=== PATIENT | female | born 1995 | race Hispanic/Latino ===

== ENCOUNTER 2018-07-27 04:41 | Emergency (ER) | payer OTHER ==
[2018-07-27 05:03] VITALS: RESP 18; O2SAT 100
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
[2018-07-27 06:41] VITALS: BP 115/71; PULSE 61; TEMP 98.2
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
== END 2018-07-27 06:54 | disposition home or self-care (01) ==
LOC: C.ER 04:41
DX: S09.90XA Unspecified injury of head, initial encounter (principal); S13.4XXA Sprain of ligaments of cervical spine, initial encounter; S60.221A Contusion of right hand, initial encounter; V49.49XA Driver injured in collision with other motor vehicles in traffic accident, initial encounter; W22.11XA Striking against or struck by driver side automobile airbag, initial encounter; Y92.410 Unspecified street and highway as the place of occurrence of the external cause

== ENCOUNTER 2018-07-27 15:50 | Emergency (ER) | payer OTHER ==
[2018-07-27 16:06] VITALS: BP 107/70; PULSE 69; RESP 16; TEMP 98; O2SAT 98
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
== END 2018-07-27 17:45 | disposition home or self-care (01) ==
LOC: C.ER 15:50
DX: S63.501D Unspecified sprain of right wrist, subsequent encounter (principal); S13.4XXD Sprain of ligaments of cervical spine, subsequent encounter; V49.49XD Driver injured in collision with other motor vehicles in traffic accident, subsequent encounter; W22.11XD Striking against or struck by driver side automobile airbag, subsequent encounter